=== PATIENT | female | born 1960 | race Caucasian/White ===

== ENCOUNTER 2017-01-26 10:07 | Emergency (ER) | payer MEDICARE, OTHER ==
[~2017-01-26 10:07] MED LIST: BUSPAR 10MG10 MG PO; CYMBALTA60 MG PO; LACTINEX PACKET1 PKT PO; LIPITOR40 MG PO; LOPRESSOR 25 MG25 MG PO; PROTONIX40 MG PO
[2017-01-26 11:33] LABS: HEMOGLOBIN 14.4 gm/dl (12.3-15.3); RED BLOOD COUNT 5.2 M/UL (4.00-5.10); WHITE BLOOD COUNT 6.3 K/UL (4.5-11.0)
[2017-01-26 11:54] LABS: BUN/CREATININE RATIO 16 (0-10)
== END 2017-01-26 15:24 | disposition home or self-care (01) ==
LOC: ER1 10:07
PROVIDERS: Physician Assistant
DX: R10.12 Left upper quadrant pain (principal); R10.32 Left lower quadrant pain; R11.2 Nausea with vomiting, unspecified; R19.7 Diarrhea, unspecified; R31.9 Hematuria, unspecified; K62.5 Hemorrhage of anus and rectum; I12.9 Hypertensive chronic kidney disease with stage 1 through stage 4 chronic kidney disease, or unspecified chronic kidney disease; N18.9 Chronic kidney disease, unspecified; B19.10 Unspecified viral hepatitis B without hepatic coma; Z90.49 Acquired absence of other specified parts of digestive tract; Z88.5 Allergy status to narcotic agent; Z88.8 Allergy status to other drugs, medicaments and biological substances; Z79.899 Other long term (current) drug therapy
CPT/HCPCS: 36415; 80053; 81001; 83690; 84484; 85025; 93005; 96361; 96374; 96375; 99284; J2550; J7050; Q9962

== ENCOUNTER → 2017-01-31 | Outpatient (CLI) | payer MEDICARE, OTHER | LOC: LAB 16:13 | DX: K51.919 Ulcerative colitis, unspecified with unspecified complications (principal); R10.9 Unspecified abdominal pain; I10 Essential (primary) hypertension | CPT/HCPCS: 82043 ==

== ENCOUNTER 2017-02-17 22:02 | Emergency (ER) | payer MEDICARE, OTHER ==
[2017-02-18 09:10] LABS: HEMOGLOBIN 12.7 gm/dl (12.3-15.3); RED BLOOD COUNT 4.68 M/UL (4.00-5.10); WHITE BLOOD COUNT 5.1 K/UL (4.5-11.0)
[2017-02-18 09:37] LABS: BUN/CREATININE RATIO 25 (0-10)
== END 2017-02-18 13:12 | disposition home or self-care (01) ==
LOC: ER1 22:02
PROVIDERS: Emergency Medicine
DX: N39.0 Urinary tract infection, site not specified (principal); N28.1 Cyst of kidney, acquired; N28.9 Disorder of kidney and ureter, unspecified; I25.2 Old myocardial infarction; I10 Essential (primary) hypertension; Z90.49 Acquired absence of other specified parts of digestive tract; Z88.5 Allergy status to narcotic agent; Z88.8 Allergy status to other drugs, medicaments and biological substances
CPT/HCPCS: 36415; 80053; 81001; 83690; 85025; 96374; 96375; 99284; J2405

== ENCOUNTER 2017-03-18 12:18 | Emergency (ER) | payer MEDICARE | END 2017-03-18 14:23 | disposition home or self-care (01) | LOC: ER1 12:18 | DX: S83.91XA Sprain of unspecified site of right knee, initial encounter (principal); S80.02XA Contusion of left knee, initial encounter; R00.0 Tachycardia, unspecified; I10 Essential (primary) hypertension; Z88.1 Allergy status to other antibiotic agents; Z88.5 Allergy status to narcotic agent; W19.XXXA Unspecified fall, initial encounter; Y92.009 Unspecified place in unspecified non-institutional (private) residence as the place of occurrence of the external cause | CPT/HCPCS: 73502; 73564; 73590; 99283 ==